=== PATIENT | female | born 1980 | race Caucasian/White ===

== ENCOUNTER 2016-07-15 16:30 | Outpatient (CLI) | payer OTHER ==
[2015-01-07 17:23] VITALS: BP 137/74
== END 2016-07-15 16:31 ==
LOC: LAB 16:30
PROVIDERS: ATTEND Family Medicine
DX: R07.0 Pain in throat (principal)
CPT/HCPCS: 87880

== ENCOUNTER 2019-02-03 15:32 | Outpatient (CLI) | payer OTHER ==
[2015-01-07 17:23] VITALS: BP 137/74
== END 2019-02-03 15:34 ==
LOC: LAB 15:32
PROVIDERS: ATTEND Family Medicine
DX: R07.0 Pain in throat (principal)
CPT/HCPCS: 87070; 87880